=== PATIENT | male | born 1960 | race Caucasian/White ===

== ENCOUNTER 2021-02-05 14:38 | Emergency (ER) | payer MEDICARE ==
[2021-02-05 15:32] LABS: HEMOGLOBIN 15.3 gm/dl (14.0-17.5); RED BLOOD COUNT 4.45 M/UL (4.20-5.50); WHITE BLOOD COUNT 5.9 K/UL (4.5-11.0)
[2021-02-05 15:49] LABS: BUN/CREATININE RATIO 19 (0-10)
== END 2021-02-05 17:07 | disposition home or self-care (01) ==
LOC: ER1 14:38
PROVIDERS: Physician Assistant Medical
DX: S30.1XXA Contusion of abdominal wall, initial encounter (principal); I11.9 Hypertensive heart disease without heart failure; Z95.1 Presence of aortocoronary bypass graft; Z90.49 Acquired absence of other specified parts of digestive tract; W10.9XXA Fall (on) (from) unspecified stairs and steps, initial encounter
CPT/HCPCS: 71045; 80053; 81001; 85025; 85610; 99284; Q9967

== ENCOUNTER → 2021-05-10 | Outpatient (CLI) | payer MEDICARE | LOC: KOH-I 11:51 | DX: M25.562 Pain in left knee (principal) | CPT/HCPCS: 73562 ==